=== PATIENT | female | born 1975 | race American Indian/Alaskan Native ===

== ENCOUNTER 2019-04-04 16:43 | Observation (INO) | payer OTHER ==
--- NOTE | 2019-04-04 17:40 | Event Note ---
ED Screening Note Date of service: 04/04/19 Time: 17:36 ED Screening Note: This is a 44 y.o. F. that presents to the ER after syncopal episode. Patient states she was at home coking and found on the floor. Patient states she was started on antibiotics by PCP yesterday. Patient reports myalgia This initial assessment/diagnostic orders/clinical plan/treatment(s) is/are subject to change based on patients health status, clinical progression and re- assessment by fellow clinical providers in the ED. Further treatment and workup at subsequent clinical providers discretion. Patient/guardian urged not to elope from the ED as their condition may be serious if not clinically assessed and man aged. Initial orders include: EKG BG 104
[2019-04-04] MEDS ORDERED: SODIUM CHLORIDE 0.9% 500 ML 500 ML IV ONE (20:13)
--- NOTE | 2019-04-04 20:18 | Emergency Department Report ---
ED General Adult HPI - General Chief complaint: Dizziness Stated complaint: passed out Time Seen by Provider: 04/04/19 17:36 Source: patient, RN notes reviewed, old records reviewed Mode of arrival: Ambulatory Limitations: No Limitations - History of Present Illness Initial comments: Primary care Dr.: Dr. Ashraf Patient is a 44-year-old female who was not known to this provider previously. She presents to the ER after a possible episode of unprovoked syncope. Patient saw her primary care doctor yesterday for bronchitis/upper respiratory tract sym ptoms, and was prescribed amoxicillin. She took 1 tablet yesterday, and one tablet this morning. She's taken this medication before in the past without adverse event that she is aware of. She reports today she was not having any physical pain, no headache, neck pain, chest pain, abdominal pain or shortness of breath, that she was cooking in the kitchen, and felt dizzy, which she describes as a sensation of lightheaded, without pain, and the next thing she realized, she was on the floor. At the moment, she denies all physical pain. She denies DVT and pulmonary embolism risk factors. She has no recollection of falling onto the floor. The patient denies preceding headache, neck pain and chest pain. She feels like she is back to her baseline at this time. No Simkin family history that she is aware of. She does not recall any new or different medications with the exception of amoxicillin. -: Sudden Consistency: now resolved Improves with: none Worsens with: none Associated Symptoms: cough, syncope - Related Data Home Medications Medication Instructions Recorded Confirmed Last Taken Estradiol 2 mg PO TID 05/13/14 05/13/14 05/12/14 21:00 Pnv with Ca,No.72/Iron/FA 1 tab PO QDAY 05/13/14 05/13/14 05/12/14 14:00 [ Plus Multivitamin Tab] proGESTerone [Progesterone] 1 ml SUB-Q QHS 05/13/14 05/13/14 05/12/14 20:00 Allergies Allergy/AdvReac Type Severity Reaction Status Date / Time No Known Allergies Allergy Verified 05/13/14 08:18 ED Review of Systems ROS: Stated complaint: passed out Other details as noted in HPI Constitutional: denies: fever, malaise Eyes: denies: eye discharge ENT: congestion Respiratory: cough Cardiovascular: syncope. denies: chest pain Gastrointestinal: denies: abdominal pain, hematemesis, melena, hematochezia Genitourinary: denies: dysuria Musculoskeletal: denies: back pain Skin: denies: lesions Neurological: denies: headache Hematological/Lymphatic: denies: easy bleeding ED Past Medical Hx - Past Medical History Previous Medical History?: No Hx Psychiatric Treatment: Yes - Surgical History Hx Cholecystectomy: Yes (2003) - Social History Smoking Status: Never Smoker Substance Use Type: None - Medications Home Medications: Home Medications Medication Instructions Recorded Confirmed Last Taken Type Estradiol 2 mg PO TID 05/13/14 05/13/14 05/12/14 21:00 History Pnv with Ca,No.72/Iron/FA 1 tab PO QDAY 05/13/14 05/13/14 05/12/14 14:00 History [ Plus Multivitamin Tab] proGESTerone [Progesterone] 1 ml SUB-Q QHS 05/13/14 05/13/14 05/12/14 20:00 H istory ED Physical Exam - General Limitations: No Limitations General appearance: alert, in no apparent distress - Head Head exam: Present: atraumatic, normocephalic - Eye Eye exam: Present: normal appearance, PERRL, EOMI, other (visual acuity intact to finger counting, color perception and reading at a close distance). Absent: nystagmus - ENT ENT exam: Present: normal exam, normal orophraynx, mucous membranes moist, normal external ear exam - Neck Neck exam: Present: normal inspection, full ROM. Absent: tenderness, meningismus - Respiratory Respiratory exam: Present: normal lung sounds bilaterally. Absent: respiratory distress - Cardiovascular Cardiovascular Exam: Present: normal rhythm, bradycardia, systolic murmur. Absent: tachycardia, irregular rhythm, diastolic murmur, rubs, gallop - GI/Abdominal GI/Abdominal exam: Present: soft. Absent: distended, tenderness, guarding, rebound, rigid, pulsatile mass - Extremities Exam Extremities exam: Present: normal inspection, full ROM, other (2+ pulses noted in the bilateral upper and lower extremities. There is no long bony tenderness. The pelvis is stable. The muscular compartments are soft. There is no palpable cord.). Absent: pedal edema, calf tenderness - Back Exam Back exam: Present: normal inspection, full ROM. Absent: tenderness, CVA tenderness (R), CVA tenderness (L), paraspinal tenderness, vertebral tenderness - Neurological Exam Neurological exam: Present: alert, oriented X3, normal gait (there is no pass pointing. There is normal [id number].), other (The extraocular movements are intact bilaterally. There is no facial droop. The tongue is midline. Phonating in normal sentences. Hearing is intact grossly. Walking with a steady gait. 5/5 strength with 4 extremities. Sensation intact to light touch in 4 extremities. Appropriate thought content. GCS 15.). Absent: motor sensory deficit - Psychiatric Psychiatric exam: Present: normal affect, normal mood - Skin Skin exam: Present: warm, dry, intact, normal color. Absent: rash ED Course Vital Signs 04/04/19 16:50 Temperature 99.2 F Pulse Rate 71 Respiratory 16 Rate Blood Pressure 157/82 O2 Sat by Pulse 98 Oximetry - Reevaluation(s) Reevaluation #1: 04/04/19 20:28 Differential diagnosis, including but not limited to, orthostasis, vagal event, structural cardiac disease, pulmonary embolism, intracranial hemorrhage, electrolyte derangement, Assessment and plan: 44-year-old female, who is not tachycardic, tachypneic or hypoxic, reports no DVT or pulmonary embolism risk factors, low risk by well's criteria, perc negative, with unprovoked episode of syncope. She is afebrile, with reassuring vital signs, clinically sober, with a GCS of 15. Her physical examination is fairly unremarkable with the exception of bradycardia, and a 2/6 systolic murmur, without radiation. No diastolic murmur is noted. EKG shows bradycardia, with nonspecific septal T-wave abnormalities and motion artifact. The EKG is not consistent with STEMI, although T wave inversion in V3 appears to be new when compared to prior EKG from March 2014. Patient placed on radiation monitor, screening laboratory studies ordered, CT scan of the brain ordered, and we will reassess. Anticipated admission for cardiac risk stratification, and further evaluation of syncope, given unprovoked nature, lack of preceding symptoms, abnormal EKG, with nonspecific changes when compared to prior. Reevaluation #2: 04/04/19 21:39 CT scan of the brain is negative for acute disease. Laboratory studies, troponin, d-dimer negative. Repeat EKG unchanged from prior. Still having persistent T-wave abnormalities. Given bradycardia, new onset T-wave inversions, unexplained syncope, we will admit patient to the medical service for further evaluation and management. Discussed this with the patient, who verbalizes understanding and is amenable to this plan of care. Case is presented to Hospital physician, Dr. Palumbo, who has accepted the patient to his service. ED Medical Decision Making - Lab Data Result diagrams: 04/04/19 20:16 04/04/19 20:16 Vital Signs 04/04/19 16:50 Temperature 99.2 F Pulse Rate 71 Respiratory 16 Rate Blood Pressure 157/82 O2 Sat by Pulse 98 Oximetry - EKG Data -: EKG Interpreted by In Rate: bradycardia - EKG Data When compared to previous EKG there are: changes noted 04/04/19 20:30 EKG today has motion artifact. This is a sinus bradycardia, 47 beats per minute, normal axis, QTC is prolonged, T-wave inversion V2, biphasic T-wave in V3, motion artifact V5. No endorsement of chest pain. Nonspecific changes when compared to prior from 2014. Not consistent with STEMI - Radiology Data Radiology results: pending, report reviewed, image reviewed Critical care attestation.: If time is entered above; I have spent that time in minutes in the direct care of this critically ill patient, excluding procedure time. ED Disposition Clinical Impression: Syncope, Acute electrocardiogram changes, Bradycardia Disposition: DC-[id number] OP ADMIT IP TO THIS HOSP Is pt being admited?: Yes Does the pt Need Aspirin: Yes Condition: Good Instructions: Syncope (ED)
[2019-04-04 20:27] LABS: Hematocrit 39.6 % (30.3-42.9); Mean Corpuscular HGB Conc 33 % (30-34); Mean Corpuscular Volume 86 fl (79-97); Platelet Count 231 K/mm3 (140-440); Red Cell Distribution Width 14.4 % (13.2-15.2)
[2019-04-04 20:41] LABS: INR 0.99 (0.87-1.13)
[2019-04-04 20:49] LABS: Alanine Aminotransferase 7 units/L (7-56); Albumin 4.5 g/dL (3.9-5); BUN/Creatinine Ratio 14; Blood Urea Nitrogen 10 mg/dL (7-17); Hemolysis Index 5
--- NOTE | 2019-04-04 21:18 | Cat Scan Report ---
CT head/brain wo con INDICATION / CLINICAL INFORMATION: 44 years Female; unprovoked syncope. TECHNIQUE: Routine CT head without contrast. All CT scans at this location are performed using CT dos e reduction for ALARA by means of automated exposure control. COMPARISON: None. FINDINGS: BRAIN / INTRACRANIAL CONTENTS: No acute hemorrhage, mass effect, midline shift, hydrocephalus, or acu te, large territorial infarct. No chronic infarct or atrophy appreciated. No significant white matter abnormality. CRANIOCERVICAL JUNCTION: No significant abnormality. ORBITS: No significant abnormality of visualized orbits. SINUSES / MASTOIDS: No significant abnormality the visualized paranasal sinuses or mastoid air cells. ADDITIONAL FINDINGS: None. IMPRESSION: 1. No focal mass, hemorrhage, hydrocephalus, or acute, large territorial infarct. Signer Name: Orion Chavez MD, III Signed: 04/04/2019 9:14 PM Workstation Name: [id number]
[2019-04-04] MEDS ORDERED: ASPIRIN 325 MG TAB PO ONE (21:40)
--- NOTE | 2019-04-04 21:54 | XRay Report ---
CHEST 1 VIEW 04/04/2019 9:07 PM INDICATION / CLINICAL INFORMATION: cough syncope. COMPARISON: Chest x-ray 04/09/2014 FINDINGS: SUPPORT DEVICES: None. HEART / MEDIASTINUM: No significant abnormality. LUNGS / PLEURA: No significant pulmonary or pleural abnormality. No pneumothorax. ADDITIONAL FINDINGS: No significant additional findings. IMPRESSION: 1. No acute findings. Signer Name: Bo Minor MD Signed: 04/04/2019 9:49 PM Workstation Name: [id number]
[2019-04-04] MEDS ORDERED: ACETAMINOPHEN 325 MG TAB PO PRN (22:54)
[2019-04-04] MEDS ORDERED: ONDANSETRON 4 MG/2 ML INJ IV PRN (22:54)
--- NOTE | 2019-04-04 23:11 | History and Physical Report ---
History of Present Illness Date of examination: 04/04/19 Date of admission: 04/04/19 21:40 Chief complaint: Syncope History of present illness: 44-year-old -[place] female presents to the emergency room today complaining of syncope. She indicates she was in the kitchen at home when she suddenly felt lightheaded and fell. She denies any headache and denies any head injury. Patient denies any fever or chills, no nausea vomiting, no chest pain or shortness of breath. She however had some nasal congestion and cough over the past few days and was seen by primary care physician who prescribed amoxicillin. She took a dose of the antibiotics overnight and had no reaction to the medication. Upon evaluation in the emergency room patient was found to be bradycardic otherwise all other work-up was unremarkable. Past History Past Medical History: No medical history Past Surgical History: cholecystectomy Social history: no significant social history Medications and Allergies Allergies Allergy/AdvReac Type Severity Reaction Status Date / Time No Known Allergies Allergy Verified 05/13/14 08:18 Home Medications Medication Instructions Recorded Confirmed Last Taken Type Amoxicillin [Trimox CAP] 500 mg PO Q8HR 04/04/19 04/04/19 04/04/19 History Active Meds: Active Medications Acetaminophen (Tylenol) 650 mg PO Q4H PRN PRN Reason: Pain MILD(1-3)/Fever >100.5/CARTER Ondansetron HCl (Zofran) 4 mg IV Q8H PRN PRN Reason: Nausea And Vomiting Sodium Chloride (Sodium Chloride Flush Syringe 10 Ml) 10 ml IV BID MIGUEL Sodium Chloride (Sodium Chloride Flush Syringe 10 Ml) 10 ml IV PRN PRN PRN Reason: LINE FLUSH Review of Systems Constitutional: no weight gain, no fever, no chills Ears, nose, mouth and throat: no tinnitis Cardiovascular: no chest pain, no palpitations Respiratory: no cough, no shortness of breath Gastrointestinal: no nausea, no vomiting Musculoskeletal: no neck pain, no low back pain Neurological: syncope, no weakness, no seizures, no change in speech, no change in mentation Exam - Constitutional Vitals: Temp Pulse Resp BP Pulse Ox 99.2 F 71 16 157/82 98 04/04/19 16:50 04/04/19 16:50 04/04/19 16:50 04/04/19 16:50 04/04/19 16:50 General appearance: Present: no acute distress, well-nourished - EENT Eyes: Present: PERRL, EOM intact ENT: hearing intact, clear oral mucosa, dentition normal - Neck Neck: Present: supple, normal ROM - Respiratory Respiratory effort: normal Respiratory: bilateral: CTA - Cardiovascular Rhythm: regular (Bradycardic) Heart Sounds: Present: S1 & S2 - Extremities Extremities: no ischemia, pulses intact, No edema, Full ROM Peripheral Pulses: within normal limits - Abdominal General gastrointestinal: Present: soft, non-tender, non-distended - Integumentary Integumentary: Present: clear, warm, dry - Musculoskeletal Musculoskeletal: strength equal bilaterally - Psychiatric Psychiatric: appropriate mood/affect, intact judgment & insight, cooperative - Neurologic Neurologic: CNII-XII intact, moves all extremities Results - Labs CBC & Chem 7: 04/04/19 20:16 04/04/19 20:16 Labs: Abnormal lab results 04/04/19 04/04/19 04/04/19 Range/Units 20:16 20:16 20:16 Glucose 119 H (65-100) mg/dL Salicylates < 0.3 L (2.8-20.0) mg/dL Acetaminophen < 5.0 L (10.0-30.0) ug/mL Assessment and Plan - Patient Problems (1) Syncope Current Visit: Yes Status: Acute Plan to address problem: Etiology is unclear but probably due to the bradycardia. Patient admitted and placed on telemetry. We will place a consult to cardiology for further evaluation and recommendation. Meanwhile patient be scheduled for echocardiogram and carotid Doppler. (2) Bradycardia Current Visit: Yes Status: Acute Plan to address problem: Patient will be closely monitored on telemetry. Will await cardiology evaluation. (3) DVT prophylaxis Current Visit: Yes Status: Acute Plan to address problem: Patient placed on subcutaneous heparin. (4) Full code status Current Visit: Yes Status: Acute
[2019-04-05 05:45] LABS: Basophils % (Auto) 0.4 % (0.0-1.8); Eosinophils % (Auto) 0.1 % (0.0-4.3); Hematocrit 38.4 % (30.3-42.9); Hemoglobin 12.8 gm/dl (10.1-14.3); Lymphocytes # (Auto) 1.3 K/mm3 (1.2-5.4); Lymphocytes % (Auto) 36.4 % (13.4-35.0); Mean Corpuscular HGB Conc 33 % (30-34); Mean Corpuscular Volume 87 fl (79-97); Monocytes # (Auto) 0.5 K/mm3 (0.0-0.8); Monocytes % (Auto) 13.8 % (0.0-7.3); Platelet Count 223 K/mm3 (140-440); Red Blood Count 4.43 M/mm3 (3.65-5.03)
[2019-04-05 05:53] LABS: INR 0.96 (0.87-1.13); Partial Thromboplastin Time 30.7 Sec. (24.2-36.6)
[2019-04-05 06:00] LABS: BUN/Creatinine Ratio 12; Blood Urea Nitrogen 7 mg/dL (7-17); Calcium 8.9 mg/dL (8.4-10.2); Hemolysis Index 33
--- NOTE | 2019-04-05 11:43 | Event Note ---
Date: 04/05/19 full consult dictated will follow
--- NOTE | 2019-04-05 13:09 | Consultation ---
CARDIOLOGY CONSULTATION REFERRING PHYSICIAN: Dr. Koehler. PRIMARY CARE PHYSICIAN: Dr. Cross. HISTORY OF PRESENT ILLNESS: The patient is a pleasant 44-year-old female who presents to the Emergency Room with syncope. She said she was at the sink for approximately 10-15 minutes, felt lightheaded and next thing she remembers family was waking her up. She denies any chest pain or shortness of breath. No previous episodes of syncope that she can remember. No headache, nausea or vomiting. No palpitations. No family history of premature heart disease. ALLERGIES: No known drug, food or medication allergies. MEDICATIONS: She has just started amoxicillin for what appears to be URI. REVIEW OF SYSTEMS: As per HPI. She has no other known medical history and she is on no medications at home outside that. PHYSICAL EXAMINATION: VITAL SIGNS: Sinus rhythm in the 60s, blood pressure is 127/78. She has no AFib or AV block. HEENT: Sclerae anicteric. NECK: Supple. No mass or JVD. CHEST: Clear to auscultation bilaterally. Good air movement. CARDIOVASCULAR: Regular rate and rhythm, S1, S2. ABDOMEN: Soft, nontender, nondistended. Normoactive bowel sounds in 4 quadrants. No mass or bruits. EXTREMITIES: No cyanosis, clubbing or edema. Good peripheral pulses. SKIN: Intact. No rashes. DATA: As aforementioned. LABORATORY DATA: Unremarkable thus far including TSH, BMP and CBC. Echo is pending. Telemetry as aforementioned. Chest x-ray with no acute bony or interstitial findings. Head CT shows no acute findings as well. ASSESSMENT AND PLAN: At this point, we will continue to monitor on tele. Check echocardiogram. I believe carotids are also pending. Consider discharge in a.m. if she remains asymptomatic and objective findings are unremarkable. This may have been a vasovagal event. We will follow along. Thank you for this consultation. JOB# [id number] SBM/NTS
--- NOTE | 2019-04-05 13:59 | Progress Note ---
Assessment and Plan / Syncope Etiology is unclear but probably due to the bradycardia. Patient admitted and placed on telemetry. consulted to cardiology for further evaluation and recommendation. scheduled for echocardiogram and carotid Doppler - will follow result / Sinus Bradycardia Patient will be closely monitored on telemetry. Will await cardiology evaluation and 2d echo result. /DVT prophylaxis Patient placed on subcutaneous heparin. Full code status Current Visit: Yes Status: Acute Subjective Date of service: 04/05/19 Interval history: patient sen and examined denies any chest pain or SOB came from 2d echo tolerating diet, denies dizziness Objective - Constitutional Vitals: Vital Signs - 12hr 04/05/19 04/05/19 04/05/19 04:57 08:17 12:29 Temperature 98.1 F 98.5 F 98.5 F Pulse Rate 65 78 59 L Respiratory 20 18 18 Rate Blood Pressure 144/79 127/78 140/79 O2 Sat by Pulse 99 97 97 Oximetry General appearance: Present: no acute distress - EENT Eyes: PERRL, EOM intact ENT: hearing intact, clear oral mucosa Ears: bilateral: normal - Neck Neck: supple, normal ROM - Respiratory Respiratory effort: normal Respiratory: bilateral: CTA - Cardiovascular Rhythm: regular Heart Sounds: Present: S1 & S2. Absent: gallop, rub Extremities: pulses intact, No edema, normal color, Full ROM - Gastrointestinal General gastrointestinal: Present: soft, non-tender, non-distended, normal bowel sounds - Integumentary Integumentary: clear, warm, dry - Musculoskeletal Musculoskeletal: 1, strength equal bilaterally - Neurologic Neurologic: moves all extremities - Psychiatric Psychiatric: memory intact, appropriate mood/affect, intact judgment & insight - Labs CBC & Chem 7: 04/05/19 04:24 04/05/19 04:24 Labs: Abnormal lab results 04/04/19 04/04/19 04/04/19 Range/Units 20:16 20:16 20:16 WBC (4.5-11.0) K/mm3 Lymph % (Auto) (13.4-35.0) % Stokes % (Auto) (0.0-7.3) % Creatinine (0.7-1.2) mg/dL Glucose 119 H (65-100) mg/dL Salicylates < 0.3 L (2.8-20.0) mg/dL Acetaminophen < 5.0 L (10.0-30.0) ug/mL 04/05/19 04/05/19 Range/Units 04:24 04:24 WBC 3.6 L (4.5-11.0) K/mm3 Lymph % (Auto) 36.4 H (13.4-35.0) % Stokes % (Auto) 13.8 H (0.0-7.3) % Creatinine 0.6 L (0.7-1.2) mg/dL Glucose (65-100) mg/dL Salicylates (2.8-20.0) mg/dL Acetaminophen (10.0-30.0) ug/mL
--- NOTE | 2019-04-06 10:44 | Progress Note ---
Assessment and Plan clinically stable no complaints ambulating w/o sxs tte unremarkable tele only reveals mild SB (no AVB) carotid pending may have been a vasovagal episode stress mpi to be done in office - Patient Problems (1) Bradycardia Current Visit: Yes Status: Acute (2) Syncope Current Visit: Yes Status: Acute (3) Viral illness Current Visit: No Status: Acute Subjective Date of service: 04/06/19 Interval history: no complaints feel much better Objective Vital Signs Temp Pulse Pulse Pulse Pulse Resp BP 04/06/19 08:23 73 73 73 19 04/06/19 07:46 98.6 F 74 22 126/75 04/06/19 04:30 98.0 F 63 18 107/64 04/06/19 04:00 58 L 04/05/19 22:56 98.1 F 57 L 18 126/77 04/05/19 22:48 18 04/05/19 19:42 98.2 F 74 18 140/74 04/05/19 17:29 98.4 F 75 18 141/78 04/05/19 17:00 52 L 04/05/19 12:29 98.5 F 59 L 18 140/79 04/05/19 12:00 83 Pulse Ox 04/06/19 08:23 99 04/06/19 07:46 96 04/06/19 04:30 100 04/06/19 04:00 04/05/19 22:56 98 04/05/19 22:48 04/05/19 19:42 99 04/05/19 17:29 100 04/05/19 17:00 04/05/19 12:29 97 04/05/19 12:00
--- NOTE | 2019-04-06 11:24 | Vascular Lab Report ---
"DUPLEX DOPPLER ULTRASOUND CAROTID, BILATERAL INDICATION: Syncope. FINDINGS: RIGHT CAROTID: No significant atherosclerotic plaque. Right ICA peak systolic velocity: 100 cm/sec. Right Vertebral Artery: Antegrade flow. LEFT CAROTID: No significant atherosclerotic plaque. Left ICA peak systolic velocity: 105 cm/sec. Left Vertebral Artery: Antegrade flow. IMPRESSION: 1. Right Internal Carotid Artery: Less than 50% diameter stenosis. 2. Left Internal Carotid Artery: Less than 50% diameter stenosis. Velocity criteria are extrapolated from diameter data as defined by the Society of Radiologists [place] [address] Consensus Conference, Radiology 2003; 229;340-346. Degree of Stenosis (%) || ICA PSV (cm/sec) || Plaque estimate (%) || ICA/CCA PSV Ratio Normal <125 None <2.0 <50 <125 <50 <2.0 50-69 125-230 50 2.0-4.0 70 but less than 100 >230 50 >4.0 Near occlusion High, low, or none visible variable Total occlusion None visible; no lumen N/A Signer Name: Bo Minor MD Signed: 04/06/2019 11:20 AM Workstation Name: [id number]"
[2019-04-06 11:55] VITALS: BP 117/57
--- NOTE | 2019-04-06 12:52 | Discharge Summary ---
Providers - Providers Date of Admission: 04/04/19 21:40 Date of discharge: 04/06/19 Attending physician: PIETRO WALKER 04/04/19 22:54 Consult to Physician [CONS] Routine Comment: Consulting Provider: CHRISTOPH DRISCOLL Physician Instructions: Reason For Exam: SYNCOPE,BRADYCARDIA Primary care physician: ALVERTO BLANK Hospitalization Condition: Good Hospital course: Discharge diagnosis: / Syncope Etiology is unclear but probably due to the bradycardia vs vasovagal syncope. Patient admitted and placed on telemetry. consulted to cardiology for further evaluation and recommendation. preserved Ef on echocardiogram and <50 % stenosis b/l on carotid Doppler, Ct head w/o any acute changes Stress test as outpt / Sinus Bradycardia has preserved EF, stress test outpt /DVT prophylaxis Patient placed on subcutaneous heparin. Disposition: TO HOME OR SELFCARE Time spent for discharge: 34 minutes Core Measure Documentation - Palliative Care Palliative Care/ Comfort Measures: Not Applicable - Core Measures Any of the following diagnoses?: none Exam - Constitutional Vitals: Temp Pulse Resp BP Pulse Ox 98.8 F 58 L 22 117/57 98 04/06/19 11:12 04/06/19 11:12 04/06/19 11:12 04/06/19 11:12 04/06/19 11:12 General appearance: Present: no acute distress, well-nourished - EENT Eyes: Present: PERRL ENT: hearing intact, clear oral mucosa - Neck Neck: Present: supple, normal ROM - Respiratory Respiratory effort: normal Respiratory: bilateral: CTA - Cardiovascular Heart Sounds: Present: S1 & S2. Absent: rub, click - Extremities Extremities: pulses symmetrical, No edema Peripheral Pulses: within normal limits - Abdominal General gastrointestinal: Present: soft, non-tender, non-distended, normal bowel sounds - Integumentary Integumentary: Present: clear, warm, dry - Musculoskeletal Musculoskeletal: gait normal, strength equal bilaterally - Psychiatric Psychiatric: appropriate mood/affect, intact judgment & insight - Neurologic Neurologic: CNII-XII intact, moves all extremities Plan Activity: advance as tolerated Weight Bearing Status: Weight Bear as Tolerated Diet: low fat, low salt Additional Instructions: stress test outpt Follow up with: ALVERTO BLANK MD [Primary Care Provider] - 7 Days PROSPER MAXWELL MD [Staff Physician] - 7 Days
[2019-04-06] MEDS ORDERED: AMOXICILLIN 500 MG CAP PO SCH (14:00)
== END 2019-04-06 17:29 | disposition home or self-care (01) ==
LOC: ED 16:43 → 4A 21:40
PROVIDERS: ADMIT Internal Medicine Geriatric Medicine; ATTEND Internal Medicine
DX: R55 Syncope and collapse (principal); R00.1 Bradycardia, unspecified; B34.9 Viral infection, unspecified; R42 Dizziness and giddiness; R94.31 Abnormal electrocardiogram [ECG] [EKG]; Z79.899 Other long term (current) drug therapy
CPT/HCPCS: 36415; 70450; 71045; 80048; 80053; 82550; 82962; 83735; 84443; 84484; 84702; 85025; 85027; 85379; 85610; 85730; 93005; 93010; 93306; 93880; 99284; G0378; J7040; 80320; G0480

== ENCOUNTER 2021-01-24 01:15 | Observation (INO) | payer OTHER ==
[2021-01-24 02:20] LABS: Basophils % (Auto) 0.4 % (0.0-1.8); Eosinophils # (Auto) 0.1 K/mm3 (0.0-0.4); Eosinophils % (Auto) 0.9 % (0.0-4.3); Hematocrit 38.8 % (30.3-42.9); Hemoglobin 12.3 gm/dl (10.1-14.3); Lymphocytes # (Auto) 1.6 K/mm3 (1.2-5.4); Lymphocytes % (Auto) 19.9 % (13.4-35.0); Mean Corpuscular HGB Conc 32 % (30-34); Mean Corpuscular Volume 87 fl (79-97); Monocytes # (Auto) 0.4 K/mm3 (0.0-0.8); Monocytes % (Auto) 4.5 % (0.0-7.3); Platelet Count 286 K/mm3 (140-440); Red Blood Count 4.45 M/mm3 (3.65-5.03); Red Cell Distribution Width 14.2 % (13.2-15.2)
[2021-01-24] MEDS ORDERED: ONDANSETRON 4 MG/2 ML INJ IV ONE (02:26)
[2021-01-24] MEDS ORDERED: MORPHINE 4 MG/1 ML INJ IV ONE (02:26)
[2021-01-24] MEDS ORDERED: SODIUM CHLORIDE 0.9% 1000 ML 1,000 ML IV ONE (02:26)
[2021-01-24] MEDS ORDERED: PANTOPRAZOLE 40 MG INJ IV ONE (02:27)
--- NOTE | 2021-01-24 02:28 | Emergency Department Report ---
ED General Adult HPI - General Chief complaint: Abdominal Pain Stated complaint: STOMACH PAIN PUI?: No Time Seen by Provider: 01/24/21 02:12 Source: patient, RN notes reviewed, old records reviewed Mode of arrival: Ambulatory Limitations: No Limitations - History of Present Illness Initial comments: The patient is a 45-year-old female. She is not known to myself previously. She has a history of exploratory laparotomy, colostomy, now resolved, and to be diverted. She presents to the ER today with complaint of epigastric pain and upper quadrant abdominal pain. This started earlier on today. The patient denies headache, neck pain, chest pain, vomiting, exertional shortness of breath, and urinary symptoms. She denies . She denies Covid symptoms. The patient thinks that she is defecating but less than usual. The patient thinks that she is passing gas, but less than usual. Her pain is sharp and throbbing, and increases with palpation and decreases with rest, position and pain medication. She drank kailyn tea earlier on today, but this is not improved her symptoms. To the best of her recollection, she is not had a history of SBO. -: Gradual, hour(s) Location: abdomen Radiation: non-radiation Quality: aching Consistency: constant Improves with: movement, rest - Related Data Home Medications Medication Instructions Recorded Confirmed Last Taken Amoxicillin [Trimox CAP] 500 mg PO Q8HR 04/04/19 04/04/19 04/04/19 Allergies Allergy/AdvReac Type Severity Reaction Status Date / Time No Known Allergies Allergy Verified 05/13/14 08:18 ED Review of Systems ROS: Stated complaint: STOMACH PAIN Other details as noted in HPI Constitutional: denies: fever, malaise ENT: denies: epistaxis Respiratory: denies: cough Cardiovascular: denies: chest pain Gastrointestinal: abdominal pain. denies: vomiting Genitourinary: denies: dysuria Musculoskeletal: denies: back pain Neurological: denies: weakness Psychiatric: anxiety ED Past Medical Hx - Past Medical History Previous Medical History?: Yes Hx Psychiatric Treatment: Yes - Surgical History Hx Cholecystectomy: Yes (2003) - Social History Smoking Status: Never Smoker - Medications Home Medications: Home Medications Medication Instructions Recorded Confirmed Last Taken Type Amoxicillin [Trimox CAP] 500 mg PO Q8HR 04/04/19 04/04/19 04/04/19 History ED Physical Exam - General Limitations: No Limitations General appearance: alert, anxious, obese - Head Head exam: Present: atraumatic, normocephalic - Eye Eye exam: Present: normal appearance, EOMI. Absent: nystagmus - ENT ENT exam: Present: normal exam, normal orophraynx, mucous membranes moist, normal external ear exam - Neck Neck exam: Present: normal inspection, full ROM. Absent: tenderness, meningismus - Respiratory Respiratory exam: Present: normal lung sounds bilaterally. Absent: respiratory distress, wheezes, rales, rhonchi, stridor, decreased breath sounds - Cardiovascular Cardiovascular Exam: Present: regular rate, normal rhythm, normal heart sounds. Absent: bradycardia, tachycardia, irregular rhythm, systolic murmur, diastolic murmur, rubs, gallop - GI/Abdominal GI/Abdominal exam: Present: soft, distended, tenderness, hyperactive bowel sounds. Absent: guarding, rebound, rigid - Extremities Exam Extremities exam: Present: normal inspection, full ROM, other (2+ pulses noted in the bilateral upper and lower extremities. There is no palpable cord. negative Homans sign. Muscular compartments are soft. The pelvis is stable.). Absent: pedal edema, calf tenderness - Back Exam Back exam: Present: normal inspection, full ROM. Absent: tenderness, CVA tenderness (R), CVA tenderness (L), paraspinal tenderness, vertebral tenderness - Neurological Exam Neurological exam: Present: alert, oriented X3, normal gait, other (No facial droop. Tongue midline. Extraocular movements intact bilaterally. Facial sensation intact to light touch in V1, V2, V3 distribution bilaterally. 5 and a 5 strength in 4 extremities. Sensation intact to light touch in 4 extremities.). Absent: motor sensory deficit - Psychiatric Psychiatric exam: Present: anxious - Skin Skin exam: Present: warm, dry, intact, normal color. Absent: rash ED Course Vital Signs 01/24/21 01/24/21 01/24/21 01:33 03:24 05:01 Temperature 98.0 F 98 F Pulse Rate 79 102 H Respiratory 20 16 12 Rate Blood Pressure 149/62 159/69 [Left] O2 Sat by Pulse 99 100 Oximetry - Reevaluation(s) Reevaluation #1: 01/24/21 03:55 Differential diagnosis, including but not limited to: GERD, gastritis, hiatal hernia, obstruction, acute coronary syndrome Assessment and plan: 45-year-old female, who was afebrile, with reassuring vital signs, who is not currently tachycardic, tachypneic or hypoxic, who denies DVT and pulmonary embolism risk factors, who is low risk by Wells criteria for pulmonary embolism, who is PERC negative, who presents with abdominal pain, tenderness, decreased stool and flatus, complex abdominal surgical history. Low risk for major adverse cardiac event as per heart score. Concerning for SBO. We will treat her symptoms. Obtain appropriate laboratory studies. Obtain CT scan of the abdomen pelvis. Reassess. Discussed this plan of care with the patient. She is agreeable to this plan of care peer 01/24/21 04:54 CT scan abdomen pelvis confirms small bowel obstruction as expected. Discussed this with the patient. Discussed recommendations for admission. No active vomiting this time. Laboratory studies otherwise reviewed and appreciated and are unremarkable. Have placed a page out to general surgery Reevaluation #2: 01/24/21 05:05 Discussed history, physical, laboratory studies and imaging studies with general surgery, Dr Veena Thompson she will follow in consultation since patient is not vomiting and appears to be protecting secretions at this time, we agree to withhold NG tube at this time. Patient is agreeable to admission, discussed CT scan findings. Hospital nurse practitioner Rocio Galvez, working with Dr Jerrica Palumbo, to admit to [facility] ED Medical Decision Making - Lab Data Result diagrams: 01/24/21 02:05 01/24/21 02:05 Vital Signs 01/24/21 01/24/21 01:33 03:24 Temperature 98.0 F Pulse Rate 79 Respiratory 20 16 Rate Blood Pressure 149/62 [Left] O2 Sat by Pulse 99 Oximetry Lab Results 01/24/21 01/24/21 01/24/21 Range/Units 02:05 02:05 02:05 WBC 8.2 (4.5-11.0) K/mm3 RBC 4.45 (3.65-5.03) M/mm3 Hgb 12.3 (10.1-14.3) gm/dl Hct 38.8 (30.3-42.9) % MCV 87 (79-97) fl MCH 28 (28-32) pg MCHC 32 (30-34) % RDW 14.2 (13.2-15.2) % Plt Count 286 (140-440) K/mm3 Lymph % (Auto) 19.9 (13.4-35.0) % [place] % (Auto) 4.5 (0.0-7.3) % Eos % (Auto) 0.9 (0.0-4.3) % Baso % (Auto) 0.4 (0.0-1.8) % Lymph # (Auto) 1.6 (1.2-5.4) K/mm3 [place] # (Auto) 0.4 (0.0-0.8) K/mm3 Eos # (Auto) 0.1 (0.0-0.4) K/mm3 Baso # (Auto) 0.0 (0.0-0.1) K/mm3 Seg Neutrophils % 74.3 H (40.0-70.0) % Seg Neutrophils # 6.1 (1.8-7.7) K/mm3 Sodium 142 (137-145) mmol/L Potassium 4.2 (3.6-5.0) mmol/L Chloride 103.1 (98-107) mmol/L Carbon Dioxide 27 (22-30) mmol/L Anion Gap 16 mmol/L BUN 9 (7-17) mg/dL Creatinine 0.9 (0.6-1.2) mg/dL Estimated GFR > 60 ml/min BUN/Creatinine Ratio 10 % Glucose 125 H (65-100) mg/dL Calcium 10.1 (8.4-10.2) mg/dL Troponin T < 0.010 (0.00-0.029) ng/mL Amylase 113 (27-131) units/L Lipase 22 (13-60) units/L HCG, Quant (0-4) mIU/mL /15/ Range/Units Unknown WBC (4.5-11.0) K/mm3 RBC (3.65-5.03) M/mm3 Hgb (10.1-14.3) gm/dl Hct (30.3-42.9) % MCV (79-97) fl MCH (28-32) pg MCHC (30-34) % RDW (13.2-15.2) % Plt Count (140-440) K/mm3 Lymph % (Auto) (13.4-35.0) % [place] % (Auto) (0.0-7.3) % Eos % (Auto) (0.0-4.3) % Baso % (Auto) (0.0-1.8) % Lymph # (Auto) (1.2-5.4) K/mm3 [place] # (Auto) (0.0-0.8) K/mm3 Eos # (Auto) (0.0-0.4) K/mm3 Baso # (Auto) (0.0-0.1) K/mm3 Seg Neutrophils % (40.0-70.0) % Seg Neutrophils # (1.8-7.7) K/mm3 Sodium (137-145) mmol/L Potassium (3.6-5.0) mmol/L Chloride (98-107) mmol/L Carbon Dioxide (22-30) mmol/L Anion Gap mmol/L BUN (7-17) mg/dL Creatinine (0.6-1.2) mg/dL Estimated GFR ml/min BUN/Creatinine Ratio % Glucose (65-100) mg/dL Calcium (8.4-10.2) mg/dL Troponin T (0.00-0.029) ng/mL Amylase (27-131) units/L Lipase (13-60) units/L HCG, Quant 1.37 (0-4) mIU/mL - EKG Data -: EKG Interpreted by Ma EKG shows normal: sinus rhythm Rate: normal - EKG Data 01/24/21 03:54 The EKG is interpreted at 03: 49 Sinus rhythm, 67 bpm. Normal axis, normal intervals, low voltage. The EKG is not a STEMI. Nonspecific T wave abnormalities. - Radiology Data Radiology results: pending, report reviewed, image reviewed CT ABDOMEN AND PELVIS WITH CONTRAST INDICATION / CLINICAL INFORMATION: Epigastric abdominal pain, pancreatitis versus obs. TECHNIQUE: Axial CT images were obtained through the abdomen and pelvis after Omnipaque 300, 100 [address] All [address] scans at this location are performed using CT dose reduction for ALARA by means of automated exposure control. COMPARISON: None available. FINDINGS: LOWER CHEST: Old right rib fracture with adjacent scarring. LIVER: No significant abnormality. GALLBLADDER: No significant abnormality. BILE DUCTS: No significant abnormality. PANCREAS: No significant abnormality. SPLEEN: No significant abnormality. ADRENALS: No significant abnormality. RIGHT KIDNEY / URETER: No significant abnormality. LEFT KIDNEY / URETER: No significant abnormality. STOMACH / SMALL BOWEL: Dilated small bowel deep within the pelvis extending to the region of the ileocecal valve. COLON: No significant abnormality. APPENDIX: Nonvisualized. PERITONEUM: No free fluid. No free air. Scattered benign-appearing calcification within the mesentery and adjacent to the liver and spleen. LYMPH NODES: No significant adenopathy. VASCULAR STRUCTURES: No significant abnormality. URINARY BLADDER: No significant abnormality. REPRODUCTIVE ORGANS: No significant abnormality. ADDITIONAL F INDINGS: Small fat-containing umbilical hernia. SKELETAL SYSTEM: No significant abnormality. IMPRESSION: Suspect developing distal small bowel obstruction. Signer Name: Vu Barkley MD Signed: 01/24/2021 3:32 AM Workstation Name: [id number] Critical care attestation.: If time is entered above; I have spent that time in minutes in the direct care of this critically ill patient, excluding procedure time. ED Disposition Clinical Impression: Small bowel obstruction Disposition: 09 ADMITTED INPATIENT Is pt being admited?: Yes Does the pt Need Aspirin: No Condition: Stable Instructions: Abdominal Pain (ED) Heart Score - HEART Score History: Slightly suspicious EKG: Non-specific Age: 45-65 Risk factors: No known risk factors Troponin: < normal limit HEART Score: 2 - EKG Read Time Time EKG Completed: 03:49 EKG Read Time: 03:49 - Critical Actions Critical Actions: 0-3 pts:0.9-1.7%risk of adverse cardiac event.Candidate for discharge
[2021-01-24 02:39] LABS: BUN/Creatinine Ratio 10; Blood Urea Nitrogen 9 mg/dL (7-17); Calcium 10.1 mg/dL (8.4-10.2); Hemolysis Index 3
[2021-01-24 04:23] LABS: Bilirubin,Urine NEG (Negative); Blood,Urine SM (Negative); Color,Urine Yellow (Yellow); Mucus,Urine FEW /HPF; Protein,Urine <15 mg/dL mg/dL (Negative); Urobilinogen,Urine < 2.0 mg/dL (<2.0)
--- NOTE | 2021-01-24 04:37 | Cat Scan Report ---
CT ABDOMEN AND PELVIS WITH CONTRAST INDICATION / CLINICAL INFORMATION: Epigastric abdominal pain, pancreatitis versus obs. TECHNIQUE: Axial CT images were obtained through the abdomen and pelvis after Omnipaque 300, 100 cc I V contrast. All CT scans at this location are performed using CT dose reduction for ALARA by means o f automated exposure control. COMPARISON: None available. FINDINGS: LOWER CHEST: Old right rib fracture with adjacent scarring. LIVER: No significant abnormality. GALLBLADDER: No significant abnormality. BILE DUCTS: No significant abnormality. PANCREAS: No significant abnormality. SPLEEN: No significant abnormality. ADRENALS: No significant abnormality. RIGHT KIDNEY / URETER: No significant abnormality. LEFT KIDNEY / URETER: No significant abnormality. STOMACH / SMALL BOWEL: Dilated small bowel deep within the pelvis extending to the region of the ileo cecal valve. COLON: No significant abnormality. APPENDIX: Nonvisualized. PERITONEUM: No free fluid. No free air. Scattered benign-appearing calcification within the mesentery and adjacent to the liver and spleen. LYMPH NODES: No significant adenopathy. VASCULAR STRUCTURES: No significant abnormality. URINARY BLADDER: No significant abnormality. REPRODUCTIVE ORGANS: No significant abnormality. ADDITIONAL FINDINGS: Small fat-containing umbilical hernia. SKELETAL SYSTEM: No significant abnormality. IMPRESSION: Suspect developing distal small bowel obstruction. Signer Name: Vu Barkley MD Signed: 01/24/2021 4:32 AM Workstation Name: [id number]
--- NOTE | 2021-01-24 05:27 | History and Physical Report ---
History of Present Illness Date of examination: 01/24/21 Date of admission: 01/24/21 Chief complaint: abdominal pain History of present illness: This is a 45-year-old female seen in ED at bedside. Patient has a history of exploratory laparotomy and colostomy, now resolved, and to be diverted. She presents to the ER today with complaint of epigastric pain and upper quadrant abdominal pain. This started earlier on today. The patient denies headache, neck pain, chest pain, vomiting, exertional shortness of breath, and urinary symptoms. She denies . She denies Covid symptoms. CT of the abdomen and pelvis showed -suspicion of small bowel obstruction. General surgeon has been consulted from the ED. Past History Past Medical History: hyperlipidemia, other (SBO) Past Surgical History: bowel surgery, Other (s/p corected colostomy) Social history: full code. denies: smoking, alcohol abuse, prescription drug abuse, IV drug use Family history: no significant family history Medications and Allergies Allergies Allergy/AdvReac Type Severity Reaction Status Date / Time No Known Allergies Allergy Verified 05/13/14 08:18 Home Medications Medication Instructions Recorded Confirmed Last Taken Type Amoxicillin [Trimox CAP] 500 mg PO Q8HR 04/04/19 04/04/19 04/04/19 History Review of Systems Ears, nose, mouth and throat: no epistaxis, no bleeding gums Cardiovascular: no chest pain, no orthopnea Respiratory: no wheezing, no pleurisy Gastrointestinal: abdominal pain, constipation, no melena Genitourinary Female: no vaginal itching Rectal: no hemorrhoids Musculoskeletal: no neck pain Integumentary: no rash, no pruritis, no redness Psychiatric: anxiety Hematologic/Lymphatic: no easy bruising, no easy bleeding, no lymphadenopathy, no lymphedema Allergic/Immunologic: no urticaria Exam - Constitutional Vitals: Temp Pulse Resp BP Pulse Ox 98 F 102 H 12 159/69 100 01/24/21 05:01 01/24/21 05:01 01/24/21 05:01 01/24/21 05:01 01/24/21 05:12 General appearance: Present: mild distress, well-nourished - EENT Eyes: Present: PERRL ENT: hearing intact, clear oral mucosa - Neck Neck: Present: supple, normal ROM - Respiratory Respiratory effort: normal Respiratory: bilateral: CTA - Cardiovascular Heart Sounds: Present: S1 & S2. Absent: rub, click - Extremities Extremities: pulses symmetrical, No edema Peripheral Pulses: within normal limits - Abdominal General gastrointestinal: Present: soft, non-tender, non-distended, normal bowel sounds Female genitourinary: Present: normal - Integumentary Integumentary: Present: clear, warm, dry - Musculoskeletal Musculoskeletal: gait normal, strength equal bilaterally - Psychiatric Psychiatric: appropriate mood/affect, intact judgment & insight - Neurologic Neurologic: CNII-XII intact, moves all extremities - Allied Health Allied health notes reviewed: nursing HEART Score - HEART Score EKG: Non-specific Age: 45-65 Risk factors: No known risk factors Troponin: Troponin T < 0.010 ng/mL (0.00-0.029) 01/24/21 02:05 Troponin: < normal limit - Critical Actions Critical Actions: 0-3 pts:0.9-1.7%risk of adverse cardiac event.Candidate for di schararley Results - Labs CBC & Chem 7: 01/24/21 02:05 01/24/21 02:05 Labs: Abnormal lab results 01/24/21 01/24/21 01/24/21 Range/Units 02:05 02:05 03:18 Seg Neutrophils % 74.3 H (40.0-70.0) % Glucose 125 H (65-100) mg/dL Urine WBC (Auto) 24.0 H (0.0-6.0) /HPF Assessment and Plan - Patient Problems (1) Small bowel obstruction Current Visit: Yes Status: Acute Plan to address problem: CT of the abdomen done radiology report showed a suspected developing distal small bowel obstruction General surgeon consulted (2) Hyperglycemia Current Visit: No Status: Acute Plan to address problem: Monitor blood sugar with SSI check hemoglobin A1c (3) UTI (urinary tract infection) Current Visit: Yes Status: Acute Plan to address problem: Empiric antibiotic (4) DVT prophylaxis Current Visit: Yes Status: Acute Plan to address problem: SCD (5) Full code status Current Visit: No Status: Acute Plan to address problem: Patient is full code
[2021-01-24] MEDS ORDERED: METOCLOPRAMIDE 10 MG/2 ML INJ IV PRN (05:28)
[2021-01-24] MEDS ORDERED: ONDANSETRON 4 MG/2 ML INJ IV PRN (05:28)
[2021-01-24] MEDS ORDERED: ALUM-MAG HYDROXIDE-SIMETHICONE 200-200-20MG/5ML ORAL LIQD 30 ML PO PRN (05:28)
[2021-01-24] MEDS ORDERED: MAGNESIUM HYDROXIDE (MOM) ORAL LIQD UDC PO PRN (05:28)
[2021-01-24] MEDS ORDERED: oxyCODONE /ACETAMINOPHEN 5-325MG TAB PO PRN (05:28)
[2021-01-24] MEDS ORDERED: ACETAMINOPHEN 325 MG TAB PO PRN (05:28)
[2021-01-24] MEDS ORDERED: NALOXONE 0.4 MG/1 ML INJ IV PRN (05:28)
[2021-01-24] MEDS ORDERED: cefTRIAXone/NS 1 GM/50 ML 1 GM/50 ML BAG IV SCH (06:00)
[2021-01-24] MEDS ORDERED: hydrALAZINE 20 MG/1 ML INJ IV PRN (07:04)
--- NOTE | 2021-01-24 08:25 | Event Note ---
Date: 01/24/21 This is a follow-up from an admission earlier this morning. Patient seen and examined. We will continue to plan as outlined in H&P. Await surgery consultation. Continue antibiotics. Follow-up blood and urine cultures. Total visit time equals 35 minutes with greater than 50% spent on coordination of care and counseling.
[2021-01-24] MEDS: INSULIN LISPRO 100 UNIT/ML SUB-Q SCH ×2 (09:07→12:00)
--- NOTE | 2021-01-24 09:19 | XRay Report ---
ABDOMEN 2 VIEWS INDICATION / CLINICAL INFORMATION: sbo. COMPARISON: None available. FINDINGS: TUBES / LINES: None. BOWEL GAS PATTERN: Constipation throughout the abdomen FREE AIR / EXTRALUMINAL GAS: None seen. ADDITIONAL FINDINGS: Multiple calcifications are scattered throughout the abdomen CHEST: Right lower lung effusion and atelectasis IMPRESSION: 1. Constipation. 2. Right lower lung atelectasis/effusion Signer Name: Kyaw Mtz MD Signed: 01/24/2021 9:14 AM Workstation Name: [id number]
[2021-01-24] MEDS ORDERED: FAMOTIDINE 20 MG/2 ML INJ IV SCH (10:00)
--- NOTE | 2021-01-24 10:26 | Electrocardiograph Report ---
[facility] Test Date: 2021-01-24 Test Time: 03:49:52 Pat Name: ANNA KEENE Department: Room: [place] [address] Gender: F Title 1 Tutor: [id number] : 1975 Requested By: FANI CRANDALL Order Number: [id number] Reading MD: Inderjit Sanchez Measurements Intervals Britt Rate: 67 P: 69 IN: 130 QRS: 60 QRSD: 73 T: 33 QT: 413 QTc: 435 Interpretive Statements Sinus rhythm Low voltage, precordial leads No previous ECG available for comparison Electronically Signed On 01-24-2021 10:26:24 EST by Inderjit Sanchez
[2021-01-24 12:04] VITALS: BP 127/70
--- NOTE | 2021-01-24 14:16 | Consultation ---
History of Present Illness Consult date: 01/24/21 Chief complaint: abd pain - History of present illness History of present illness: 45-year-old female with a past surgical history of exploratory laparotomy, Hodges's procedure with subsequent reversal who presents to the emergency room with epigastric abdominal pain. The patient's states that the pain started on the day of presentation to the ER. The pain was sharp. It did not radiate. She states she was having only very small bowel movements. No current nausea or vomiting. No fevers or chills. She states that when she usually gets bloated she drinks a natural herbal remedy but this time it did not help. She is p assing flatus. She states she had a bowel movement today in the emergency room and feels better. She has a decreased appetite. Past History Past Medical History: hyperlipidemia, other (SBO) Past Surgical History: bowel surgery, Other (Exploratory laparotomy, Hodges's procedure with subsequent reversal of colostomy) Social history: full code. denies: smoking, alcohol abuse, prescription drug abuse, IV drug use Family history: no significant family history Medications and Allergies Allergies Allergy/AdvReac Type Severity Reaction Status Date / Time No Known Allergies Allergy Verified 05/13/14 08:18 Home Medications Medication Instructions Recorded Confirmed Last Taken Type Amoxicillin [Trimox CAP] 500 mg PO Q8HR 04/04/19 04/04/19 04/04/19 History Active Meds: Active Medications Acetaminophen (Acetaminophen 325 Mg Tab) 650 mg PO Q4H PRN PRN Reason: Pain MILD(1-3)/Fever >100.5/CARTER Al Hydrox/Mg Hydrox/Simethicone (Alum-Mag Hydroxide-Simethicone [id number]/5ml Oral Liqd 30 Ml) 30 ml PO Q4H PRN PRN Reason: Indigestion Famotidine (Famotidine 20 Mg/2 Ml Inj) 20 mg IV BID MIGUEL Last Admin: 01/24/21 12:01 Dose: 20 mg Documented by: Hydralazine HCl (Hydralazine 20 Mg/1 Ml Inj) 5 mg IV Q4HR PRN PRN Reason: Hypertension Ceftriaxone Sodium (Rocephin/Ns 1 Gm/50 Ml) 1 gm in 50 mls @ 100 mls/hr IV Q24H MIGUEL; Protocol Stop: 01/27/21 05:59 Last Admin: 01/24/21 05:52 Dose: 100 mls/hr Documented by: Insulin Human Lispro (Insulin Lispro 100 Unit/Ml) 0 unit SUB-Q ACHS [facility]; Protocol Last Admin: 01/24/21 12:00 Dose: Not Given Documented by: Magnesium Hydroxide (Magnesium Hydroxide (Mom) Oral Liqd Udc) 30 ml PO Q4H PRN PRN Reason: Constipation Naloxone HCl (Naloxone 0.4 Mg/1 Ml Inj) 0.1 mg IV Q2MIN PRN PRN Reason: Res Rate </= 8 or 02 SAT < 92% Ondansetron HCl (Ondansetron 4 Mg/2 Ml Inj) 4 mg IV Q8H PRN PRN Reason: Nausea And Vomiting Oxycodone/Acetaminophen (Oxycodone /Acetaminophen 5-325mg Tab) 1 tab PO Q6H PRN PRN Reason: Pain, Moderate (4-6) Sodium Chloride (Sodium Chloride 0.9% 10 Ml Flush Syringe) 10 ml IV BID [facility] Last Admin: 01/24/21 12:01 Dose: 10 ml Documented by: Sodium Chloride (Sodium Chloride 0.9% 10 Ml Flush Syringe) 10 ml IV PRN PRN PRN Reason: LINE FLUSH Review of Systems All systems: negative (10 point ROS performed and negative except for that listed in HPI) Exam Vital Signs Temp Pulse Resp BP Pulse Ox 98.0 F 79 20 149/62 99 01/24/21 01:33 01/24/21 01:33 01/24/21 01:33 01/24/21 01:33 01/24/21 01:33 Narrative exam: Gen.: Awake, alert, oriented x3. No apparent distress ENT: Trachea midline. No lymphadenopathy. No scleral icterus or conjunctival pallor CV: S1, S2 present Respiratory: No audible wheezes Abdomen: Soft, nondistended, nontender. Well-healed surgical scars. No rebound, rigidity, guarding Extremities: No clubbing, cyanosis, edema Results - Labs 01/24/21 02:05 01/24/21 02:05 Abnormal lab results 01/24/21 01/24/21 01/24/21 Range/Units 02:05 02:05 03:18 Seg Neutrophils % 74.3 H (40.0-70.0) % Glucose 125 H (65-100) mg/dL POC Glucose (70-105) mg/dL Urine WBC (Auto) 24.0 H (0.0-6.0) /HPF 01/24/21 Range/Units 11:59 Seg Neutrophils % (40.0-70.0) % Glucose (65-100) mg/dL POC Glucose 117 H (70-105) mg/dL Urine WBC (Auto) (0.0-6.0) /HPF Diabetes panel 01/24/21 01/24/21 Range/Units 02:05 02:05 Sodium 142 (137-145) mmol/L Potassium 4.2 (3.6-5.0) mmol/L Chloride 103.1 (98-107) mmol/L Carbon Dioxide 27 (22-30) mmol/L BUN 9 (7-17) mg/dL Creatinine 0.9 (0.6-1.2) mg/dL Glucose 125 H (65-100) mg/dL Hemoglobin A1c 6.0 (4-6) % Calcium 10.1 (8.4-10.2) mg/dL Calcium panel 01/24/21 Range/Units 02:05 Calcium 10.1 (8.4-10.2) mg/dL Pituitary panel 01/24/21 Range/Units 02:05 Sodium 142 (137-145) mmol/L Potassium 4.2 (3.6-5.0) mmol/L Chloride 103.1 (98-107) mmol/L Carbon Dioxide 27 (22-30) mmol/L BUN 9 (7-17) mg/dL Creatinine 0.9 (0.6-1.2) mg/dL Glucose 125 H (65-100) mg/dL Calcium 10.1 (8.4-10.2) mg/dL Adrenal panel 01/24/21 Range/Units 02:05 Sodium 142 (137-145) mmol/L Potassium 4.2 (3.6-5.0) mmol/L Chloride 103.1 (98-107) mmol/L Carbon Dioxide 27 (22-30) mmol/L BUN 9 (7-17) mg/dL Creatinine 0.9 (0.6-1.2) mg/dL Glucose 125 H (65-100) mg/dL Calcium 10.1 (8.4-10.2) mg/dL - Imaging Abdominal x-ray: report reviewed, image reviewed CT scan - abdomen: report reviewed, image reviewed CT scan - pelvis: report reviewed, image reviewed Assessment and Plan 45 yo F with constipation, possible early PSBO Obs series - constipation. No sign of obstruction Plan: 1. CLD-> adv as yen 2. stool softener BID 3. Follow up with PCP as outpatient. Discussed need for cscope as outpatient- patient already referred to GI by PCP 4. OK to ar home. Notified Dr. Etienne Thank you for this consultation. Please call with any questions or concerns. Evaluation and treatment of this patient was during the time of the national and state emergency arising from COVID19 coronavirus pandemic. Treatment and procedures performed meet the current and available best practice and guidelines for patient during the COVID pandemic.
== END 2021-01-24 17:23 | disposition left against medical advice (07) ==
LOC: ED 01:15 → 3A 05:07
PROVIDERS: ADMIT Internal Medicine Geriatric Medicine; ATTEND Hospitalist
DX: K56.609 Unspecified intestinal obstruction, unspecified as to partial versus complete obstruction (principal); E11.65 Type 2 diabetes mellitus with hyperglycemia; N39.0 Urinary tract infection, site not specified; K59.00 Constipation, unspecified; E78.2 Mixed hyperlipidemia; Z79.899 Other long term (current) drug therapy; Z98.890 Other specified postprocedural states
CPT/HCPCS: 36415; 74022; 74177; 80048; 81001; 82150; 82962; 83036; 83690; 84484; 84702; 85025; 87086; 93005; 96365; 96375; 99285; C9113; G0378; J0696; J2270; J2405; J3490; J7030; Q9967; Q0162